=== PATIENT | female | born 2000 | race Caucasian/White ===

== ENCOUNTER 2021-03-07 10:05 | Emergency (ER) | payer OTHER, SELFPAY ==
--- NOTE | ~2021-03-07 | XR_ITS ---
EXAMINATION: XR ANKLE, RIGHT CLINICAL INFORMATION: Right ankle injury. COMPARISON: None TECHNIQUE: AP, lateral, and mortise views of the right ankle. FINDINGS: The bones and soft tissues are normal. No fracture. Alignment is anatomic. Joint spaces are maintained. No joint effusion. XR/XR ankle RT min 3V IMPRESSION: Unremarkable right ankle.
[2021-03-07 11:00] VITALS: BP 103/71; PULSE 76; RESP 16; TEMP 36.9; O2SAT 100; BMI 29.2
--- NOTE | 2021-03-07 12:47 | ED.LOWEXIN ---
HPI - Extremity Injury (Lower) General Chief Complaint: Extremity Injury, Lower Stated Complaint: rt ankle pain Time Seen by Provider: 03/07/21 11:47 Source: patient Mode of arrival: ambulatory History of Present Illness HPI Narrative: 20-year-old female with no significant past medical history presenting to the ED complaining of right ankle pain and hearing crack s/p twisting injury last night while boxing. Admits has been icing and elevating that relief. Denies injury to other area. Reports mild numbness to pinky toe. Denies fever/chills MD complaint: foot injury Related Data Allergies Allergy/AdvReac Type Severity Reaction Status Date / Time No Known Allergies Allergy Verified 03/07/21 11:00 Review of Systems Review of Systems: Constitutional: No Fever, No Chills ENT/Mouth: No Ear Pain, No Nasal Congestion, No sore throat Cardiovascular: No Chest Pain, No SOB Respiratory: No Cough, No Sputum, No Wheezing Gastrointestinal: No Nausea, No Vomiting, No Abdominal pain Genitourinary:No Dysuria, No Flank Pain Musculoskeletal: + joint pain, No Myalgias, No Joint Swelling Skin: No Skin Lesions, No rash Neuro: No Weakness, No Numbness, + Paresthesias Yes all other systems are reviewed and are negative [facility] Past Medical History Attestation statement: The following information was validated with the patient. Social History Social History Advance Directives: No Patient : No Physical Exam Vital Signs: Vital Signs: Last Vital Signs Temp 98.4 F 03/07/21 11:00 Pulse 76 03/07/21 11:00 Resp 16 03/07/21 11:00 BP 103/71 03/07/21 11:00 Pulse Ox 100 03/07/21 11:00 Body Mass Index 29.2 Const: General: cooperative, healthy appearing and no acute distress Orientation/consciousness: patient oriented x3 Limitations: no limitations HENMT: Head: Yes normal to inspection Ears: hearing grossly normal bilaterally General nose exam: Normal external nose present Face and sinus: Yes normal facial exam Eyes: General: appearance normal, both eyes and all related structures EOM: EOMs intact bilaterally Neck: Neck: Yes normal visual inspection and Yes no meningeal signs Resp: Effort & Inspection: normal respiratory effort and no respiratory distress Cardio: Rate: regular rate Peripheral pulses: dorsalis pedis present Skin: Rashes: no rashes Wounds: no wounds Neuro: General: patient oriented x3 and no meningeal signs Gait exam (Neuro): Normal gait present Extrem: Other: Right ankle without deformity. Tenderness to palpation greater to lateral aspect. ROM decreased secondary to pain. Neurovascular intact distally. Sensation intact to light touch Base of 5th metatarsal tenderness to palpation Course Course Course Narrative: XR ankle RT min 3V IMPRESSION: Unremarkable right ankle. >> Spike wrap applied for comfort. Patient is to follow-up with PCP as needed Discharge Plan Discharge Clinical Impression: Ankle sprain and strain Patient Disposition: Home, Self-Care Instructions: Ankle Strain (ED) Additional Instructions: Your x-rays were unremarkable. You have a sprained ankle Wear Spike wrap at home as needed for comfort/debility Ice and elevate her ankle. Take Tylenol and Motrin at home Follow-up with her doctor as needed Referrals: Phys[facility] [Primary Care Provider] - 1 week Interventions: ED Discharge Assessment Last Done: 03/07/21 13:03 Discharge Date/Time: 03/07/21 13:05
== END 2021-03-07 13:05 | disposition home or self-care (01) ==
PROVIDERS: Emergency Provider Emergency Medicine
DX: S93.401A Sprain of unspecified ligament of right ankle, initial encounter (principal); M25.571 Pain in right ankle and joints of right foot; X50.1XXA Overexertion from prolonged static or awkward postures, initial encounter; Y93.9 Activity, unspecified; Y92.9 Unspecified place or not applicable; Y99.9 Unspecified external cause status
CPT/HCPCS: 73610; 99283

== ENCOUNTER 2022-05-18 17:57 | Emergency (ER) | payer OTHER, SELFPAY ==
[2022-05-18 18:11] VITALS: BP 126/84; PULSE 82; RESP 20; TEMP 36.4; O2SAT 100; BMI 29.2
--- NOTE | 2022-05-18 18:14 | ED_ITS ---
HPI - General Adult General Chief complaint: General Medical <BRITTANIE No - Last Filed: 05/31/22 09:16> Stated complaint: Sore throat & vaginal issue <BRITTANIE No - Last Filed: 05/31/22 09:16> Time Seen by Provider: 05/18/22 19:31 <BRITTANIE No - Last Filed: 05/31/22 09:16> Source: patient <Jigna Vickers NP - Last Filed: 05/19/22 00:43> Mode of arrival: ambulatory <Jigna Vickers NP - Last Filed: 05/19/22 00:43> Limitations: no limitations <Jigna Vickers NP - Last Filed: 05/19/22 00:43> History of Present Illness HPI narrative: 22-year-old female presents for multiple concerns. States that she has upper respiratory symptoms since Wednesday, and feels that she may be having herpes outbreak. She is requesting STI panel because she is experiencing dysuria. She does not report fevers or chills, or abnormal vaginal discharge. <Jigna Vickers NP - Last Filed: 05/19/22 00:43> Onset (ago): day(s) <Jigna Vickers NP - Last Filed: 05/19/22 00:43> Location: genitals <Jigna Vickers NP - Last Filed: 05/19/22 00:43> Radiation: non-radiation <Jigna Vickers NP - Last Filed: 05/19/22 00:43> Severity: mild <Jigna Vickers NP - Last Filed: 05/19/22 00:43> Quality: burning <Jigna Vickers NP - Last Filed: 05/19/22 00:43> Pain Consistency: constant <Jigna Vickers NP - Last Filed: 05/19/22 00:43> Relieving factors: none <Jigna Vickers NP - Last Filed: 05/19/22 00:43> Associated symptoms: cough, fever/chills and headaches <Jigna Vickers NP - Last Filed: 04/24 12/12 00:43> Treatments prior to arrival: none <Jigna Vickers NP - Last Filed: 05/19/22 00:43> Related Data Home medications: Previous Rx's Medication Instructions Recorded doxycycline monohydrate 100 mg 100 mg PO BID 7 days #14 tabs 05/18/22 tablet ondansetron 4 mg disintegrating 4 mg PO Q8H PRN nausea and 05/18/22 tablet vomiting #20 tabs valacyclovir 1 gram tablet 1,000 mg PO Q12H 10 days #20 tabs 05/18/22 <BRITTANIE No - Last Filed: 05/31/22 09:16> Allergies/adverse reactions: Allergies Allergy/AdvReac Type Severity Reaction Status Date / Time No Known Allergies Allergy Verified 03/07/21 11:00 <BRITTANIE No - Last Filed: 05/31/22 09:16> Review of Systems Review of Systems: Constitutional: positive Fever, positive Chills, positive fatigue, positive Malaise ENT/Mouth: positive sore throat, positive runny nose Eyes: No Discharge Cardiovascular: No Chest Pain, No SOB Respiratory: Positive Cough, No Sputum, No Wheezing, No Dyspnea Gastrointestinal: No Nausea, No Vomiting, No Diarrhea Genitourinary: Positive vaginal lesion, positive dysuria Musculoskeletal: positive Myalgia Skin: No rash Neuro: No Headache <Jigna Vickers NP - Last Filed: 05/19/22 00:43> Yes all other systems are reviewed and are negative <Jigna Vickers NP - Last Filed: 05/19/22 00:43> PMFSH Past Medical History Attestation statement: The following information was validated with the patient. <Jigna Vickers NP - Last Filed: 05/19/22 00:43> Source: old records reviewed <Jigna Vickers NP - Last Filed: 05/19/22 00:43> Social History Social History: Social History Advance Directives: No Advance Directives Information Provided: No <BRITTANIE No - Last Filed: 05/31/22 09:16> Physical Exam ED Vital Signs: Vital Signs - 24 hr 05/18/22 18:11 05/18/22 19:14 Temperature 97.5 F 97.8 F Pulse Rate 82 82 Respiratory Rate 20 16 Blood Pressure 126/84 117/71 Pulse Oximetry 100 98 Oxygen Delivery Method Room Air Room Air BMI result Body Mass Index 29.2 <BRITTANIE No - Last Filed: 05/31/22 09:16> Vital Signs - 24 hr 05/18/22 18:11 05/18/22 19:14 Temperature 97.5 F 97.8 F Pulse Rate 82 82 Respiratory Rate 20 16 Blood Pressure 126/84 117/71 Pulse Oximetry 100 98 Oxygen Delivery Method Room Air Room Air BMI result Body Mass Index 29.2 <Jigna Vickers NP - Last Filed: 05/19/22 00:43> Appearance: Alert. Oriented X3. No acute distress. Eyes: Pupils equal, round and reactive to light. ENT: Pharynx normal. No tonsillar exudates or edema. Neck: Normal inspection. Neck supple. No vertebral tenderness or nuchal rigidity. No mastoid tenderness. CVS: Normal heart rate and rhythm. Pulses normal. Respiratory: No respiratory distress. Breath sounds normal. Abdomen: Soft and nontender. Genitourinary: Scant amount of white vaginal discharge. No lesions noted. Skin: Skin warm and dry. Normal skin color. Normal skin turgor. Extremities: Gait well balanced well coordinated. Neuro: No motor deficit. No sensory deficit. Cranial nerves 2-12 intact. <Jigna Vickers NP - Last Filed: 05/19/22 00:43> Course Course Course Narrative: RME: patient presents to the ED for cough, sorethroat, and chills. patient secondary complaitns is vaginal lesions. Patient has known pmh of herpes. SARS, Strep, UA, and CTNG ordered. Patient wants to make sure it's just herpes. <BRITTANIE No - Last Filed: 05/31/22 09:16> RME: patient presents to the ED for cough, sorethroat, and chills. patient secondary complaitns is vaginal lesions. Patient has known pmh of herpes. SARS, Strep, UA, and CTNG ordered. Patient wants to make sure it's just herpes. 22-year-old female presents with multiple concerns. Physical exam is unremarkable. Oropharyngeal exam is normal. No tonsillar exudates or swelling noted. No indication of abscess or epiglottitis. Genitourinary exam shows a scant amount of vaginal discharge that is non odorous, considered to be normal. I do not appreciate any lesions or chancres. Urinalysis positive for leukocyte esterase but negative for nitrites. STI panel is pending. I will treat the patient prophylactically for chlamydia and gonorrhea based on her concerns. Will give her a course of valacyclovir for her suspected herpes outbreak. Labs drawn while she was in the emergency department waiting room. Negative for influenza RSV COVID a and strep. Patient does understand that she must obtain from sexual activity until asymptomatic. Patient verbalized understanding of and agrees to plan for discharge home. Verbalized understanding of signs and symptoms indicating need for emergent intervention. <Jigna Vickers NP - Last Filed: 05/19/22 00:43> Medications Administered Discontinued Medications Generic Name Dose Route Start Last Admin Trade Name Freq PRN Reason Stop Dose Admin Ceftriaxone Sodium 500 mg/ 0 mg 05/18/22 20:32 05/18/22 20:54 Lidocaine HCl 1 ml IM 05/18/22 20:33 1 kit ONCE ONE Administration Doxycycline Monohydrate 100 mg 05/18/22 20:32 05/18/22 20:54 Doxycycline Monohydrate 100 Mg Capsule PO 05/18/22 20:33 100 mg ONCE ONE Administration Valacyclovir HCl 1,000 mg 05/18/22 20:32 05/18/22 20:54 Valacyclovir Hcl 1,000 Mg Tablet PO 05/18/22 20:33 1,000 mg ONCE ONE Administration <BRITTANIE No - Last Filed: 05/31/22 09:16> Medications Administered Discontinued Medications Generic Name Dose Route Start Last Admin Trade Name Freq PRN Reason Stop Dose Admin Ceftriaxone Sodium 500 mg/ 0 mg 05/18/22 20:32 05/18/22 20:54 Lidocaine HCl 1 ml IM 05/18/22 20:33 1 kit ONCE ONE Administration Doxycycline Monohydrate 100 mg 05/18/22 20:32 05/18/22 20:54 Doxycycline Monohydrate 100 Mg Capsule PO 05/18/22 20:33 100 mg ONCE ONE Administration Valacyclovir HCl 1,000 mg 05/18/22 20:32 05/18/22 20:54 Valacyclovir Hcl 1,000 Mg Tablet PO 05/18/22 20:33 1,000 mg ONCE ONE Administration <Jigna Vickers NP - Last Filed: 05/19/22 00:43> Medical Decision Making Differential Diagnosis Differential Diagnoses: The differential diagnosis associated with the presentation includes <Jigna Vickers NP - Last Filed: 05/19/22 00:43> COVID, influenza, RSV, pharyngitis, gonococcal pharyngitis, herpes, syphilis, chlamydia and gonorrhea <Jigna Vickers NP - Last Filed: 05/19/22 00:43> Admission/Observation Consideration of admission/observation: Escalation of care including admission/observation considered <Jigna Vickers NP - Last Filed: 05/19/22 00:43> Admission is not considered for this patient <Jigna Vickers IN SCHOOL SUSPENSION AIDE - Last Filed: 05/19/22 00:43> Lab Data MDM Lab Attestation statement: I reviewed the patient's lab results. <Jigna Vickers NP - Last Filed: 05/19/22 00:43> Labs: Lab Results 05/18/22 05/18/22 05/18/22 Range/Units 18:16 18:17 18:30 Urine Color Yellow Urine Appearance Clear Urine pH 5.5 (5.0-9.0) Ur Specific Matteson >= 1.030 H (1.005-1.025) Urine Protein Negative (Neg-Trace) mg/dL Urine Glucose (UA) Negative (Negative) mg/dL Urine Ketones Trace (Negative) mg/dL Urine Blood Negative (Negative) Urine Nitrite Negative (Negative) Ur Leukocyte Esterase Small (1+) H (Negative) Urine RBC 0-2 (0-2) /HPF Urine WBC 11-20 H (0-5) /HPF Ur Squamous Epith Cells 3-5 (0-2) /HPF Urine Bacteria None Seen (None Seen) Hyaline Casts 0-2 (0-2) /LPF Urine Test (NEGATIVE) Chlam trachomat DNA PCR (Not Detect.) Influenza Type A (PCR) NEGATIVE (Negative) Influenza Type B (PCR) NEGATIVE (Negative) N.gonorrhoeae DNA (PCR) (Not Detect.) RSV RNA Qual (PCR) NEGATIVE (Negative) SARS-CoV-2 RNA (RT-PCR) NEGATIVE (Negative) S. pyogenes GrpA WILMA Negative (Negative) 05/18/22 05/18/22 Range/Units 18:30 18:30 Urine Color Urine Appearance Urine pH (5.0-9.0) Ur Specific Matteson (1.005-1.025) Urine Protein (Neg-Trace) mg/dL Urine Glucose (UA) (Negative) mg/dL Urine Ketones (Negative) mg/dL Urine Blood (Negative) Urine Nitrite (Negative) Ur Leukocyte Esterase (Negative) Urine RBC (0-2) /HPF Urine WBC (0-5) /HPF Ur Squamous Epith Cells (0-2) /HPF Urine Bacteria (None Seen) Hyaline Casts (0-2) /LPF Urine Test NEGATIVE (NEGATIVE) Chlam trachomat DNA PCR NOT DETECTED (Not Detect.) Influenza Type A (PCR) (Negative) Influenza Type B (PCR) (Negative) N.gonorrhoeae DNA (PCR) NOT DETECTED (Not Detect.) RSV RNA Qual (PCR) (Negative) SARS-CoV-2 RNA (RT-PCR) (Negative) S. pyogenes GrpA WILMA (Negative) <BRITTANIE No - Last Filed: 05/31/22 09:16> Lab Results 05/18/22 05/18/22 05/18/22 Range/Units 18:16 18:17 18:30 Urine Color Yellow Urine Appearance Clear Urine pH 5.5 (5.0-9.0) Ur Specific Matteson >= 1.030 H (1.005-1.025) Urine Protein Negative (Neg-Trace) mg/dL Urine Glucose (UA) Negative (Negative) mg/dL Urine Ketones Trace (Negative) mg/dL Urine Blood Negative (Negative) Urine Nitrite Negative (Negative) Ur Leukocyte Esterase Small (1+) H (Negative) Urine RBC 0-2 (0-2) /HPF Urine WBC 11-20 H (0-5) /HPF Ur Squamous Epith Cells 3-5 (0-2) /HPF Urine Bacteria None Seen (None Seen) Hyaline Casts 0-2 (0-2) /LPF Urine Test (NEGATIVE) Chlam trachomat DNA PCR (Not Detect.) Influenza Type A (PCR) NEGATIVE (Negative) Influenza Type B (PCR) NEGATIVE (Negative) N.gonorrhoeae DNA (PCR) (Not Detect.) RSV RNA Qual (PCR) NEGATIVE (Negative) SARS-CoV-2 RNA (RT-PCR) NEGATIVE (Negative) S. pyogenes GrpA WILMA Negative (Negative) 05/18/22 05/18/22 Range/Units 18:30 18:30 Urine Color Urine Appearance Urine pH (5.0-9.0) Ur Specific Matteson (1.005-1.025) Urine Protein (Neg-Trace) mg/dL Urine Glucose (UA) (Negative) mg/dL Urine Ketones (Negative) mg/dL Urine Blood (Negative) Urine Nitrite (Negative) Ur Leukocyte Esterase (Negative) Urine RBC (0-2) /HPF Urine WBC (0-5) /HPF Ur Squamous Epith Cells (0-2) /HPF Urine Bacteria (None Seen) Hyaline Casts (0-2) /LPF Urine Test NEGATIVE (NEGATIVE) Chlam trachomat DNA PCR NOT DETECTED (Not Detect.) Influenza Type A (PCR) (Negative) Influenza Type B (PCR) (Negative) N.gonorrhoeae DNA (PCR) NOT DETECTED (Not Detect.) RSV RNA Qual (PCR) (Negative) SARS-CoV-2 RNA (RT-PCR) (Negative) S. pyogenes GrpA WILMA (Negative) <Jigna Vickers NP - Last Filed: 05/19/22 00:43> External Record Review External record reviewed: Outpatient record <Jigna Vickers NP - Last Filed: 05/19/22 00:43> Prescription Management I considered prescription management with: Antiviral and Antibiotic <Jigna Vickers NP - Last Filed: 05/19/22 00:43> Discharge Plan Discharge Clinical Impression: Herpes, Sexually transmitted disease <BRITTANIE No - Last Filed: 05/31/22 09:16> Patient Disposition: Home, Self-Care <BRITTANIE No - Last Filed: 05/31/22 09:16> Instructions: Genital Herpes Simplex (ED) <BRITTANIE No - Last Filed: 05/31/22 09:16> Additional Instructions: You were evaluated for suspected genital herpes. Please take valacyclovir twice a day for the next 10 days. May consider following up with your primary care physician and her signal operator for daily valacyclovir treatment to prevent outbreaks You were treated for suspected chlamydia and gonorrhea exposure. Please complete doxycycline 100 mg twice a day for the next 7 days. We gave you an IM dose of ceftriaxone while in the emergency department. Refrain from sexual activity until your symptoms resolve. These medications may make you nauseous. I prescribed Zofran sublingual tablets to help with the nausea. Please take this medication as prescribed. Do not take more than prescribed. Take 1 tablet under the tongue every 8 hours as needed. Thank you for choosing this emergency department for evaluation. Please follow-up with primary care physician as needed. Return to the emergency department for any new, concerning, or worsening symptoms. <BRITTANIE No - Last Filed: 05/31/22 09:16> Prescriptions: New valacyclovir 1 gram tablet 1,000 mg PO Q12H 10 Days Qty: 20 0RF doxycycline monohydrate 100 mg tablet 100 mg PO BID 7 Days Qty: 14 0RF ondansetron 4 mg tablet,disintegrating 4 mg PO Q8H PRN (Reason: nausea and vomiting) Qty: 20 0RF <BRITTANIE No - Last Filed: 05/31/22 09:16> Interventions: ED Discharge Assessment Last Done: 05/18/22 21:02 <BRITTANIE No - Last Filed: 05/31/22 09:16> Discharge Date/Time: 05/18/22 21:03 <BRITTANIE No - Last Filed: 05/31/22 09:16>
[2022-05-18 18:34] LABS: Strep A Nucleic Acid Negative (Negative)
[2022-05-18 18:40] LABS: Appearance Urine Clear; Color Urine Yellow; Glucose Urine UA Negative (Negative); Leukocyte Esterase Urine Small (1+) (Negative); Nitrite Urine Negative (Negative); PH 5.5 (5.0-9.0); Specific Gravity - Urine >= 1.030 (1.005-1.025); UMIC TRIGGER UACC YES; Urine Blood Negative (Negative); Urine Ketones Trace mg/dL (Negative); Urine Protein Negative (Neg-Trace)
[2022-05-18 18:41] LABS: UPreg QC Valid YES; Urine Pregnancy NEGATIVE (NEGATIVE)
[2022-05-18 18:45] LABS: Bacteria Urine None Seen (None Seen); Hyaline Casts Urine 0-2 /LPF (0-2); RBC Urine 0-2 /HPF (0-2); UACC Culture Trigger YES
[2022-05-18 19:04] LABS: Influenza A PCR NEGATIVE (Negative); Influenza B PCR NEGATIVE (Negative); Resp Syncy Virus RNA Qual PCR NEGATIVE (Negative); SARS COV2 PCR INHOUSE NEGATIVE (Negative)
[2022-05-18 19:14] VITALS: BP 117/71; PULSE 82; RESP 16; TEMP 36.6; O2SAT 98
--- NOTE | 2022-05-18 21:01 | PC.NURSE ---
pt medicated per order
[2022-05-19 02:16] LABS: CT PCR NOT DETECTED (Not Detect.); NG PCR NOT DETECTED (Not Detect.)
== END 2022-05-18 21:03 | disposition home or self-care (01) ==
PROVIDERS: Physician Assistant; Emergency Provider Internal Medicine
DX: A60.04 Herpesviral vulvovaginitis (principal); J02.9 Acute pharyngitis, unspecified; R30.0 Dysuria; Z20.828 Contact with and (suspected) exposure to other viral communicable diseases; Z20.2 Contact with and (suspected) exposure to infections with a predominantly sexual mode of transmission
CPT/HCPCS: 0241U; 81001; 81025; 87086; 87491; 87591; 87651; 96372; 99283; 99284; J0696

== ENCOUNTER 2023-06-03 14:12 | Emergency (ER) | payer OTHER, SELFPAY ==
[2023-06-03 14:43] VITALS: BP 112/77; PULSE 89; RESP 19; TEMP 36.6; O2SAT 98; BMI 31.2
--- NOTE | 2023-06-03 14:51 | ED_ITS ---
HPI - Eye Problem General Chief complaint: Eye Problems Stated complaint: eye scratch inj at work Time Seen by Provider: 06/03/23 19:18 Source: patient Mode of arrival: ambulatory Limitations: no limitations History of Present Illness HPI Narrative: 23-year-old female with no significant past medical history who presents to the emergency department, with a friend, for complaints right eye pain. 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 She reports she has positive foreign body sensation, pain with opening the eye, and light sensitivity. She denies noting any bleeding or drainage/discharge from the eye. Pertinent positives and negatives discussed in HPI Related Data Previous Rx's Medication Instructions Recorded doxycycline monohydrate 100 mg 100 mg PO BID 7 days #14 tabs 05/18/22 tablet ondansetron 4 mg disintegrating 4 mg PO Q8H PRN nausea and 05/18/22 tablet vomiting #20 tabs valacyclovir 1 gram tablet 1,000 mg PO Q12H 10 days #20 tabs 05/18/22 amoxicillin 500 mg capsule 500 mg PO TID 10 days #30 caps 07/28/22 ciprofloxacin HCl 0.3 % eye drops 2 drp ophthalmic (eye) Q6H 5 days 06/03/23 #10 mL erythromycin 5 mg/gram (0.5 %) eye 1 appl ophthalmic-Right DAILY #3.5 06/03/23 ointment grams Allergies Allergy/AdvReac Type Severity Reaction Status Date / Time No Known Allergies Allergy Verified 06/03/23 14:43 Review of Systems 2 Review of Systems: Yes all other systems are reviewed and are negative [facility] Social History Social History Patient Tobacco Use Status: Never used Tobacco Advance Directives: No Advance Directives Information Provided: No Physical Exam 2 Vital Signs: Vital Signs: Last Vital Signs Temp 98.2 F 06/03/23 18:33 Pulse 97 06/03/23 18:33 Resp 16 06/03/23 18:33 BP 121/82 06/03/23 18:33 Pulse Ox 98 06/03/23 18:33 O2 Del Method Room Air 06/03/23 18:33 BMI result Body Mass Index 31.2 Nursing notes and vital signs reviewed. GENERAL APPEARANCE: A&0 x 4, generally well appearing, no acute distress HENMT: Normal to inspection, atraumatic, face symmetrical. Normal external ears, nose, and oropharynx clear. HEART: Normal rate and regular rhythm, normal S1/S2, no M/R/G LUNGS: LS CTA, moving air well. Able to speak in complete sentences. No crackles, wheezes, or rhonchi auscultated NEUROLOGICAL: Alert and oriented, moving all 4 extremities with equal strength. CN not formally tested but appearing grossly intact. Observed to ambulate with normal gait. Cognition normal SKIN: Warm and dry without any lesions, rash, or visible sores PSYCH: Cooperative, normal affect, normal thought process Eyes: Alignment and Position: alignment normal Eyelids: Yes eyelids normal Conjunctivae: conjunctivae normal Sclerae: sclerae normal Corneas: c orneas abnormal on the right fluorescein used and abrasion at the following clock position (6) EOM: EOMs intact bilaterally Eyes/upper lids images: 1. 2 mm corneal abrasion Course Course Course Narrative: Sustained a scratch to the right eye with a piece of paper while at work. Foreign body sensation and difficulty opening eye. Denies discharge or bleeding from eye. RME: Medications Administered Discontinued Medications Generic Name Dose Route Start Last Admin Trade Name Freq PRN Reason Stop Dose Admin Acetaminophen 975 mg 06/03/23 18:09 06/03/23 18:11 Acetaminophen 325 Mg Tablet PO 06/03/23 18:10 975 mg ONCE ONE Administration Fluorescein Sodium 1 strip 06/03/23 19:18 06/03/23 19:27 Fluorescein Sodium Strip EYE-LEFT 06/03/23 19:19 1 strip ONCE ONE Administration Tetracaine HCl 1 drop 06/03/23 19:18 06/03/23 19:27 Tetracaine Hcl 0.5% Oph Priscila 5 Ml Drops EYE-RIGHT 06/03/23 19:19 1 drop ONCE ONE Administration Medical Decision Making Medical Decision Making MDM Narrative: Old records reviewed an additional HPI obtained from patient's friend. Physical exam completed with no acute distress noted. Right eye examined after instillation of tetracaine and fluorescein with a corneal abrasion noted at lower cornea. No evidence of conjunctival laceration or foreign body. Cipro eye drops and erythromycin ointment since patient's preferred pharmacy for management of acute corneal abrasion. Patient educated to follow-up with her nurse paralegal in addition to her primary care provider for further evaluation if needed. Patient is safe for discharge at this time with plan for [id number] Tylenol and/or NSAID such as ibuprofen or naproxen for fever/discomfort with dosing as per packaging. HPI, PE, diagnostics, and plan discussed with patient and family with no unanswered questions at this time. Strict return precautions given to return to the emergency department with new, worsening, or concerning emergent symptoms. Recommended to follow-up with there primary care provider in 24-48 hours for further treatment and management. Differential Diagnosis Differential Diagnoses: The differential diagnosis associated with the presentation includes But not limited to corneal abrasion, foreign body, or rupture, laceration Discharge Plan Discharge Clinical Impression: Corneal abrasion Patient Disposition: Home, Self-Care Instructions: Corneal Abrasion (ED) Additional Instructions: Your seen in the emergency department for complaints of right eye pain. An exam was done showing a corneal abrasion. Antibiotics were sent to your preferred pharmacy for management of a corneal abrasion You are safe for discharge at this time with plan for management of fever or discomfort with [id number] Tylenol and/or NSAID such as ibuprofen or naproxen with dosing as per packaging. Please return to the emergency department with new, worsening, or concerning emergent symptoms. Recommended to follow-up with your primary care provider in 24-48 hours for further treatment and management. Thank you for choosing [facility]. Prescriptions: New ciprofloxacin HCl 0.3 % drops 2 drp ophthalmic (eye) Q6H 5 Days Qty: 10 0RF Rx Instructions: administer while awake erythromycin 5 mg/gram (0.5 %) ointment 1 appl ophthalmic-Right DAILY Qty: 3.5 0RF No Action valacyclovir 1 gram tablet 1,000 mg PO Q12H 10 Days Qty: 20 0RF doxycycline monohydrate 100 mg tablet 100 mg PO BID 7 Days Qty: 14 0RF ondansetron 4 mg tablet,disintegrating 4 mg PO Q8H PRN (Reason: nausea and vomiting) Qty: 20 0RF amoxicillin 500 mg capsule 500 mg PO TID 10 Days Qty: 30 0RF Referrals: [facility] [Provider Group] Kelly Shukla [Emergency Nurse] - Stand Alone Forms: Work/School Release Interventions: ED Discharge Assessment Last Done: 06/03/23 20:10 Discharge Date/Time: 06/03/23 20:11 Print Language: Palestinian
[2023-06-03] MEDS: Acetaminophen 325 MG TABLET 975 MG PO (18:11)
[2023-06-03 18:33] VITALS: BP 121/82; PULSE 97; RESP 16; TEMP 36.8; O2SAT 98
[2023-06-03] MEDS: Tetracaine HCl 0.5% Oph Sol 5 ML DROPS 1 DROP EYE-RIGHT (19:27)
[2023-06-03] MEDS: Fluorescein Sodium STRIP 1 STRIP EYE-LEFT (19:27)
== END 2023-06-03 20:11 | disposition home or self-care (01) ==
PROVIDERS: Emergency Provider Student in an Organized Health Care Education/Training Program
DX: S05.01XA Injury of conjunctiva and corneal abrasion without foreign body, right eye, initial encounter (principal); W22.8XXA Striking against or struck by other objects, initial encounter; Y93.89 Activity, other specified; Y92.219 Unspecified school as the place of occurrence of the external cause; Y99.0 Civilian activity done for income or pay
CPT/HCPCS: 99283

== ENCOUNTER → 2024-06-02 09:00 | Outpatient (BNV) | payer OTHER, SELFPAY | PROVIDERS: Visit Provider Psychiatry & Neurology Psychiatry | DX: F43.10 Post-traumatic stress disorder, unspecified (principal); F10.90 Alcohol use, unspecified, uncomplicated; F12.20 Cannabis dependence, uncomplicated | CPT/HCPCS: 90792; 99214 ==

== ENCOUNTER 2024-06-07 09:50 | Outpatient (REF) | payer OTHER, SELFPAY ==
[2024-06-07 10:27] LABS: Amphetamine Screen Urine Not Detected (Not Detect); Barbiturates, Urine Not Detected (Not Detect); Benzodiazepines Screen Urine Not Detected (Not Detect); Buprenorphine Scr Not Detected (Not Detect); Cannabinoid Screen Urine POSITIVE (Not Detect); Cocaine Screen Urine Not Detected (Not Detect); Fentanyl, urine Not Detected (Not Detect); Methadone Screen, Urine Not Detected (Not Detect); Opiate Screen Urine Not Detected (Not Detect); Oxycodone Screen Urine Not Detected (Not Detect); Phencyclidine Screen Urine Not Detected (Not Detect)
== END 2024-06-07 09:51 | disposition home or self-care (01) ==
LOC: HO.LNP 09:50
PROVIDERS: Visit Provider Psychiatry & Neurology Psychiatry
DX: F33.2 Major depressive disorder, recurrent severe without psychotic features (principal); F10.99 Alcohol use, unspecified with unspecified alcohol-induced disorder; F12.90 Cannabis use, unspecified, uncomplicated
CPT/HCPCS: 80307

== ENCOUNTER 2024-06-13 10:00 | Outpatient (RCR) | payer OTHER, SELFPAY ==
[2024-05-29 12:00] VITALS: BP 98/62; PULSE 88; TEMP 37.3; BMI 33.7
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
--- NOTE | 2024-06-01 16:26 | HO.PHP ---
Client's case has been opened and reviewed in teams.
--- NOTE | 2024-06-05 23:20 | HO.PHPPROGNO ---
Subjective Subjective Date of Service: 06/05/24 Reason For Visit: MDD Medication Compliance: Yes Side effects from medications: No Attending Groups: Yes Review of Systems Acute medical concerns: No Mental Status Exam Mental Status Exam Narrative: Alert, oriented, in no acute distress. Calm, cooperative, engaged. No psychomotor agitation or neurovegetative retardation. Eye contact maintained. Mood depressed, affect dysthymic, blunted without tearfulness or lability. Speech normal, soft, flat without slowing. Thought process linear, coherent, delay in some responses. Thought content related to stressors, +transient hopelessness, +passive SI, denies any intention, urge or plan to harm self. Denies any aggressive ideation or HI. No paranoia or delusional content elicited. No evidence of psychosis. Insight and judgment fair. Diagnostics Vital Signs (24Hr): BMI result Body Mass Index 33.7 Assessment & Plan Assessment & Plan (1) Complex posttraumatic stress disorder: Status: Acute Code(s): F43.10 - Post-traumatic stress disorder, unspecified Assessment and Plan: hx suggestive of possible pseudoseizure at age 7 also history of parasomnia/sleep paralysis (2) Alcohol use disorder: Status: Acute Code(s): F10.90 - Alcohol use, unspecified, uncomplicated (3) Cannabis dependence: Status: Acute Code(s): F12.20 - Cannabis dependence, uncomplicated Plan start Abilify 1-2 mg qhs (we also discussed starting prazosin, however VS not available until after our encounter (BP on low side so we will hold off starting prazosin for the time being and recheck next time) may split dose of Lexapro into 10/5 (rather than 15 mg qd given persistent ORTIZ since increasing dose to 15 mg (if does not resolve, we may consider reducing dose to 10-12.5 if no other cause for ORTIZ identified) continue hydroxyzine 50 mg TID prn anxiety continue other regular medications: Dupixent (dupilamab) 300 mg subq q 2weeks (atopic dermatitis, allergies) Routine lab work ordered as indicated EKG, routine for baseline QTc for medication considerations as indicated UDS as indicated VS reviewed: abrefile 99.1F, BP 98/62; bpm 88 Continue to monitor as per protocol Certification I certify that partial hospital treatment is medically necessary due to the symptoms and problems resulting from the patient's mental illness and the failure to treat the patient at the partial hospital level of care would likely result in the patient requiring inpatient psychiatric care which could not be prevented at a less intensive level of care. Total time managing care of this patient today ____ minutes. Discharge Plan Discharge Attending provider: Melody Alcantara Medications: New aripiprazole 2 mg tablet 2 mg PO BEDTIME Qty: 14 0RF Continued hydroxyzine pamoate 50 mg Capsule 50 mg PO TID PRN (Reason: Anxiety) escitalopram oxalate 5 mg Tablet 15 mg PO DAILY Rx Instructions: Take three tabs daily. Dupixent Pen 300 mg/2 mL pen injector 300 mg subcut Q2W Rx Instructions: Inject under the skin every two weeks. Print Language: Iranian
--- NOTE | 2024-06-09 20:24 | P.PNPSP_ITS ---
Subjective Subjective Date of Service: 06/09/24 Reason For Visit: MDD Interim History: Patient seen for follow-up. Her last day has been extended to Wednesday. She started on ABilify only a few days ago and moved up to whole 2 mg tablet yesterday. Denies any adverse effects. She took one hydroxyzine and slept better, about 6 hours. Denies any grogginess waking up. Denies any major events in interim. Says she has been avoiding alcohol since starting the medication and feels better for it so believes she will continue to avoid at least for now. Denies any hopelessness or SI. Some early signs of mood stabilization but still got a ways to go . Will plan to titrate toward 5 mg over weekend. Medication Compliance: Yes Side effects from medications: No Attending Groups: Yes Review of Systems Acute medical concerns: No Mental Status Exam Mental Status Exam Narrative: Alert, oriented, in no acute distress. Calm, cooperative, engaged. Mood less depressed, still some lability. Affect brighter reactive without tearfulness or lability. Speech normal. Thought process linear, coherent more goal-directed. Thought content related to stressors, denies hopelessness or SI, denies any intention, urge or plan to harm self. Denies any aggressive ideation or HI. No paranoia or delusional content elicited. No evidence of psychosis. Insight and judgment fair-good. Diagnostics Vital Signs (24Hr): BMI result Body Mass Index 33.7 Assessment & Plan Assessment & Plan (1) Complex posttraumatic stress disorder: Status: Acute Code(s): F43.10 - Post-traumatic stress disorder, unspecified Assessment and Plan: hx suggestive of possible pseudoseizure at age 7 also history of parasomnia/sleep paralysis (2) Alcohol use disorder: Status: Acute Code(s): F10.90 - Alcohol use, unspecified, uncomplicated (3) Cannabis dependence: Status: Acute Code(s): F12.20 - Cannabis dependence, uncomplicated Plan continue to titrate Abilify to 3-5 mg qhs continue Lexapro 15 mg (split 10/5) qd continue hydroxyzine 50 mg TID prn anxiety continue other regular medications: Dupixent (dupilamab) 300 mg subq q 2weeks (atopic dermatitis, allergies) Routine lab work ordered as indicated EKG, routine for baseline QTc for medication considerations as indicated UDS as indicated VS reviewed: abrefile 99.1F, BP 98/62; bpm 88 Continue to monitor as per protocol Patient educated on: diagnosis, medication risk/benefits and substance abuse Informed Consent: understands Reason for contiued partial hosp. stay Substantial Risk for: med/psych decompensation Certification I certify that partial hospital treatment is medically necessary due to the symptoms and problems resulting from the patient's mental illness and the failure to treat the patient at the partial hospital level of care would likely result in the patient requiring inpatient psychiatric care which could not be prevented at a less intensive level of care. Total time managing care of this patient today __30__ minutes. Discharge Plan Discharge Attending provider: Melody Alcantara Medications: New aripiprazole 2 mg tablet 2 mg PO BEDTIME Qty: 14 0RF aripiprazole 5 mg tablet 5 mg PO BEDTIME Qty: 14 0RF Continued hydroxyzine pamoate 50 mg Capsule 50 mg PO TID PRN (Reason: Anxiety) Dupixent Pen 300 mg/2 mL pen injector 300 mg subcut Q2W Rx Instructions: Inject under the skin every two weeks. escitalopram oxalate 5 mg Tablet 15 mg PO DAILY Qty: 90 0RF Rx Instructions: Take three tabs daily. Print Language: Bangladeshi
--- NOTE | 2024-06-12 10:26 | HO.PHP ---
PHP Admin, Valencia, informed the team that Shauna will not be in attendance to program today due to being sick. Shauna informed Valencia of no safety concerns and will be in attendance to program tomorrow.
--- NOTE | 2024-06-13 22:26 | HO.PHPPROGNO ---
Subjective Subjective Date of Service: 06/13/24 Reason For Visit: MDD Mental Status Exam Mental Status Exam Narrative: Alert, oriented, in no acute distress. Calm, cooperative, engaged. Mood less depressed, still some lability. Affect brighter reactive without tearfulness or lability. Speech normal. Thought process linear, coherent more goal-directed. Thought content related to stressors, denies hopelessness or SI, denies any intention, urge or plan to harm self. Denies any aggressive ideation or HI. No paranoia or delusional content elicited. No evidence of psychosis. Insight and judgment fair-good. Diagnostics Vital Signs (24Hr): BMI result Body Mass Index 33.7 Assessment & Plan Assessment & Plan (1) Complex posttraumatic stress disorder: Status: Acute Code(s): F43.10 - Post-traumatic stress disorder, unspecified Assessment and Plan: hx suggestive of possible pseudoseizure at age 7 also history of parasomnia/sleep paralysis (2) Alcohol use disorder: Status: Acute Code(s): F10.90 - Alcohol use, unspecified, uncomplicated (3) Cannabis dependence: Status: Acute Code(s): F12.20 - Cannabis dependence, uncomplicated Plan continue to titrate Abilify to 3-5 mg qhs continue Lexapro 15 mg (split 10/5) qd continue hydroxyzine 50 mg TID prn anxiety continue other regular medications: Dupixent (dupilamab) 300 mg subq q 2weeks (atopic dermatitis, allergies) Routine lab work ordered as indicated EKG, routine for baseline QTc for medication considerations as indicated UDS as indicated VS reviewed: abrefile 99.1F, BP 98/62; bpm 88 Continue to monitor as per protocol Certification I certify that partial hospital treatment is medically necessary due to the symptoms and problems resulting from the patient's mental illness and the failure to treat the patient at the partial hospital level of care would likely result in the patient requiring inpatient psychiatric care which could not be prevented at a less intensive level of care. Total time managing care of this patient today ____ minutes. Discharge Plan Discharge Attending provider: Melody Alcantara Medications: Continued Dupixent Pen 300 mg/2 mL pen injector 300 mg subcut Q2W Rx Instructions: Inject under the skin every two weeks. escitalopram oxalate 5 mg Tablet 15 mg PO DAILY Qty: 90 0RF Rx Instructions: Take three tabs daily. aripiprazole 5 mg tablet 5 mg PO BEDTIME Qty: 30 0RF Changed aripiprazole 2 mg tablet 2 mg PO DAILY Qty: 30 0RF hydroxyzine pamoate 50 mg Capsule 50 - 100 mg PO BEDTIME PRN (Reason: sleep) Qty: 30 0RF Patient Education: Mood Disorders (DC), Post Traumatic Stress Disorder (DC), Abuse of Alcohol (DC) Print Language: Kinyarwanda
== END 2024-06-13 23:59 | disposition home or self-care (01) ==
LOC: HO.PHPA 10:00
PROVIDERS: Visit Provider Psychiatry & Neurology Psychiatry
DX: F43.10 Post-traumatic stress disorder, unspecified (principal); F10.90 Alcohol use, unspecified, uncomplicated; F12.20 Cannabis dependence, uncomplicated; Z79.899 Other long term (current) drug therapy
CPT/HCPCS: 90791; 90853